=== PATIENT | male | born 1975 | race Caucasian/White ===

== ENCOUNTER → 2017-03-18 | Outpatient (CLI) | payer BC ==
[~2017-03-18] MED LIST: ATEN50TA PO; CIPR500T4 PO; FENO145T20 PO; HYDR-3812 PO; IBUP-1780 PO; LOVA20TA2 PO; OMEG500C PO; ONDA8TAB13 PO; PANT20TA3 PO; PHEN-639 PO; TAMS0.4C98 PO
== END ==
LOC: CARD 12:41
PROVIDERS: ATTEND Internal Medicine Cardiovascular Disease
DX: I11.9 Hypertensive heart disease without heart failure (principal); R00.2 Palpitations
CPT/HCPCS: 93306

== ENCOUNTER → 2018-08-29 | Outpatient (CLI) | payer BC ==
[~2018-08-29] MED LIST changes: +ACHD5005 PO; -FENO145T20 PO; +FENO145T37 PO; -HYDR-3812 PO
== END ==
LOC: CARD 11:24
PROVIDERS: ATTEND Internal Medicine Cardiovascular Disease
DX: I11.9 Hypertensive heart disease without heart failure (principal); I34.0 Nonrheumatic mitral (valve) insufficiency; R00.2 Palpitations; I27.20 Pulmonary hypertension, unspecified
CPT/HCPCS: 93306

== ENCOUNTER 2019-04-20 12:33 | Emergency (ER) | payer BC ==
[~2019-04-20] VITALS: Ht 172.7 cm; Wt 78.9 kg
[~2019-04-20 12:33] MED LIST changes: -TAMS0.4C98 PO; +TMSL.4C PO
[2019-04-20] MEDS ORDERED: TETANUS,DIPTH,PERTUSS P/F (BOOSTRIX) 0.5 ML VIAL IM ONE ×2 (13:31→13:45)
--- NOTE | 2019-04-20 13:48 | ED Upper Extremity ---
General Chief Complaint: Laceration Stated Complaint: FINGER LACERATION Nursing Triage Note: Laceration to L fifth finger. Pt reports trying to cut a zip tie with a knife and slipped. Bleeding controlled at time of assessment with dressing in place. Nursing Sepsis Screen: No Definite Risk Source: patient Exam Limitations: no limitations History of Present Illness Date Seen by Provider: Apr 20, 2019 Time Seen by Provider: 13:43 Initial Comments Laceration to the ulnar side distal pad left PT finger from using a new pocketknife to get the supplies off of a fishing reel. Tetanus is not up-to-date. Onset: just prior to arrival Severity: moderate Pain/Injury Location: left 5th finger Modifying Factors: Worse With Movement Allergies and Home Medications Allergies Coded Allergies: Penicillins (Unverified Allergy, Unknown, 02/17/15) aspirin (Unverified Allergy, Unknown, 02/17/15) Home Medications Atenolol 50 Mg Tablet, 50 MG PO DAILY, (Reported) Ciprofloxacin HCl 500 Mg Tablet, 500 MG PO BID Prescribed by: MIGUEL LOPES on 04/08/151423 Fenofibrate Nanocrystallized 145 Mg Tablet, 145 MG PO DAILY, (Reported) Hydrocodone Bit/Acetaminophen 1 Each Tablet, 1 EACH PO Q4H PRN for PAIN Prescribed by: MIGUEL LOPES on 04/08/151423 Ibuprofen 800 Mg Tablet, 800 MG PO TID, (Reported) Lovastatin 20 Mg Tablet, 20 MG PO HS, (Reported) [place]-3 Fatty Acids 500 Mg Capsule.dr, 500 MG PO DAILY, (Reported) Ondansetron 8 Mg Tab.rapdis, 8 MG PO Q6H PRN for NAUSEA/VOMITING Prescribed by: MIGUEL LOPES on 04/08/151423 Pantoprazole Sodium 20 Mg Tablet.dr, 20 MG PO DAILY, (Reported) Phenazopyridine HCl 100 Mg Tablet, 100 MG PO Q8H PRN for SPASMS Prescribed by: MIGUEL LOPES on 04/08/151423 Tamsulosin HCl 0.4 Mg Cap, 0.4 MG PO DAILY Prescribed by: MIGUEL LOPES on 04/08/151423 Patient Home Medication List Home Medication List Reviewed: Yes Review of Systems Constitutional: see HPI EENTM: see HPI Respiratory: no symptoms reported Cardiovascular: no symptoms reported Genitourinary: no symptoms reported Musculoskeletal: no symptoms reported Skin: see HPI Past Vhmolvr-Pdxkye-Mgyuxd Hx Patient Social History Alcohol Use: Occasionally Uses Recreational Drug Use: No 2nd Hand Smoke Exposure: No Recent Foreign Travel: No Contact w/Someone Who Travel: No Recent Infectious Disease Expo: No Immunizations Up To Date Tetanus Booster (TDap): More than 5yrs Seasonal Allergies Seasonal Allergies: No Past Medical History Surgeries: Yes (bilateral carpal tunnel, R knee scope) Orthopedic Respiratory: No Cardiac: Yes High Cholesterol, Hypertension Neurological: No Reproductive Disorders: No Sexually Transmitted Disease: No Gastrointestinal: No Musculoskeletal: No Endocrine: No Cancer: No Psychosocial: No Integumentary: No Blood Disorders: No Family Medical History No Pertinent Family Hx Physical Exam Vital Signs Vital Signs - First Documented 04/20/19 13:15 Temp 36.7 Pulse 69 Resp 14 B/P (MAP) 142/92 (109) Pulse Ox 100 O2 Delivery Room Air Capillary Refill : Less Than 3 Seconds Height, Weight, BMI Height: 5'8" Weight: 210lbs. oz. [id number]; 26.00 BMI Method:Stated General Appearance: WD/WN, no apparent distress HEENT: PERRL/EOMI, normal ENT inspection Respiratory: no respiratory distress, no accessory muscle use Shoulder: normal inspection, non-tender Wrist: Yes normal inspection, Yes non-tender Hand: Left, laceration (0.75 cm laceration to the ulnar side distal phalanx left pinky finger. Maintains flexion ability of the DIP joint. Has some reduced sensation distally. No foreign bodies identified. Anesthetized locally with 0.5 cc of 2% lidocaine without Afrin. Scrubbed with waxing/saline solution, 3 simple interrupted sutures size 5-0 Prolene were placed.) Neurologic/Tendon: normal motor functions, normal tendon functions Neurologic/Psychiatric: alert, normal mood/affect, oriented x 3 Skin: normal color, warm/dry Progress/Results/Core Measures Results/Orders My Orders Orders - LISSET GRANDAOS APRN Dipht,Pertuss(Acell),Tet Adult (Boostrix (04/20/19 13:31) Dipht,Pertuss(Acell),Tet Adult (Boostrix (04/20/19 13:45) Vital Signs/I&O 04/20/19 13:15 Temp 36.7 Pulse 69 Resp 14 B/P (MAP) 142/92 (109) Pulse Ox 100 O2 Delivery Room Air Blood Pressure Mean: 109 Departure Impression Primary Impression: Finger laceration Qualified Codes: S61.217A - Laceration without foreign body of left little finger without damage to nail, initial encounter Disposition: 01 HOME, SELF-CARE Condition: Stable Departure-Patient Inst. Decision time for Depature: 13:45 Referrals: MEAGHAN HARDEN (PCP/Family) Primary Care Physician Patient Instructions: Laceration Repair Add. Discharge Instructions: 1. Return to ER to have the edges removed in about 7-10 days. Return to ER for any sign of infection such as redness or swelling. You can shower allowing water run over the starting today. However don't soak it in water such as a hot tub bathtub or swimming pool until the stitches are out. Expect your left arm to be sore starting tonight for the next 48 hours after the tetanus shot. You may also noticed some body aches general malaise and fatigue( as if you're becoming sick) tomorrow as you make antibodies to the tetanus vaccine. You can take Tylenol and ibuprofen if the symptoms are too bothersome. All discharge instructions reviewed with patient and/or family. Voiced understanding. LISSET GRANADOS APRN Apr 20, 2019 13:48
[2019-04-20 14:01] VITALS: BP 142/92
== END 2019-04-20 14:01 | disposition home or self-care (01) ==
LOC: EDUNIT# 12:33 → ER 12:34
DX: S61.217A Laceration without foreign body of left little finger without damage to nail, initial encounter (principal); I10 Essential (primary) hypertension; E78.00 Pure hypercholesterolemia, unspecified; Z23 Encounter for immunization; Z88.0 Allergy status to penicillin; Z79.82 Long term (current) use of aspirin; W26.0XXA Contact with knife, initial encounter
CPT/HCPCS: 90471; 90715

== ENCOUNTER → 2021-08-23 | Outpatient (CLI) | payer BC ==
[~2021-08-23] MED LIST changes: -CIPR500T4 PO; +CIPR500T5 PO; +FENO145T26 PO; -FENO145T37 PO; +PANT20TA18 PO; -PANT20TA3 PO
== END ==
LOC: CARD 12:36
PROVIDERS: ATTEND Internal Medicine Cardiovascular Disease
DX: I10 Essential (primary) hypertension (principal)
CPT/HCPCS: 93306

== ENCOUNTER → 2022-03-19 | Outpatient (CLI) | payer BC ==
[2022-03-19 10:18] VITALS: BP 134/94
== END ==
LOC: CARD 09:24
PROVIDERS: ATTEND Internal Medicine Cardiovascular Disease
DX: I10 Essential (primary) hypertension (principal)